=== PATIENT | female | born 1960 ===

== ENCOUNTER 2017-04-26 09:47 | Day surgery (SDC) | payer MEDICARE ==
[2017-04-25 10:54] VITALS: BMI 25.9
[2017-04-26] MEDS ORDERED: cefTRIAXone IV 1 gm in Dextros 50 ML IVPB ONE (11:49)
[2017-04-26] MEDS ORDERED: Lidocaine 2% Jelly (Uro-Jet) ONE (11:50)
[2017-04-26] MEDS ORDERED: Iohexol 240 (50 ml) ONE (11:50)
[2017-04-26] MEDS ORDERED: Propofol 10 mg/ml Inj (20 ML) ONE ×2 (11:54→12:07)
[2017-04-26] MEDS ORDERED: Midazolam 2 MG/2 ML VIAL ONE (11:54)
--- NOTE | 2017-04-26 12:24 | PCM.SURG1 ---
Surgeon's Initial Post Op Note - Surgeon's Notes Surgeon: Patrick GARDNER Vacuum Metalizing Supervisor: NONE Pre-Operative Diagnosis: HEMATURIA Operative Findings: CYSTITIS,. URETHRAL POLYPS Post-Operative Diagnosis: SAME Operation Performed: CYSTO,. BILAT RTG PYELOGRAM. URETHRAL BX AND FULG. EUA Specimen/Specimens Removed: URETHRAL BX. URINE Estimated Blood Loss: EBL {In ML}: 0 Blood Products Given: N/A Drains Used: No Drains Post-Op Condition: Good Date of Surgery/Procedure: 04/26/17 Time of Surgery/Procedure: 12:25
[2017-04-26] MEDS ORDERED: HYDROmorphone 0.5 mg/0.5 ml ISec IVP PRN (12:25)
[2017-04-26 13:53] VITALS: RESP 15
[2017-04-26 14:12] VITALS: BP 128/63; PULSE 65; TEMP 97.5; O2SAT 98
--- NOTE | 2017-04-27 08:03 | OP ---
PROCEDURE DATE: 04/26/2017 PREOPERATIVE DIAGNOSIS: Hematuria. POSTOPERATIVE DIAGNOSES: Hematuria. Cystitis. Urethritis. PROCEDURE: Cystoscopy. Bilateral retrograde pyelogram. Urethral biopsy and fulguration. Exam unde r anesthesia. OPERATING SURGEON: Dr. Martita Melton DESCRIPTION OF PROCEDURE: The patient was placed in a lithotomy position. Genitalia prepped and kei ped sterilely. Perioperative antibiotics were administered. Anesthesia was provided by the anesthesiologist. A 22-[place] cystoscope sheath was introduced with obturator. Urethra and bladder were inspected with 30-degree and 70-degree lenses. FINDINGS: The urethral caliber was normal. There was moderate inflammation of the urethra, especial ly at the bladder neck. There was no bladder tumor. There was mild bladder trabeculation. There was no bladder stone. The ureteral orifices were normal in position and shape. Occlusive tip retrograde ureteropyelogram was performed. Iodinated contrast dye was instilled via co ne-tipped catheter into each ureteral orifice. The ureters and kidneys were viewed sequentially with fluoroscopy. The retrograde pyelogram demonstrated no evidence of filling defect or obstruction within the ureters or collecting systems. There were some air bubbles noted on the right. They were inconsistently vi ewed and moved as expected of an air bubble. The bladder was reinspected with 70-degree lens and confirmed the above findings. The area of the abnormal mucosa in the urethra and bladder neck was biopsied using cold cup biopsy fo rceps. Two biopsies were obtained. Fulguration was performed with ball electrode electrocautery for hemostasis. Hemostasis was complete . As said earlier, the bladder was reinspected with 70-degree lens and confirmed the above findings. T here was no tumor. There was no stone. The bladder was then drained. Cystoscope and sheath were removed. Exam under anesthesia was performed. There was no abnormal pelvic mass, fixation or induration. The patient tolerated the procedure without complication. Martita Melton MD cc: [phone] TT: 04/27/2017 08:02:36 en
--- NOTE | 2017-04-27 08:25 | RAD ---
PROCEDURE: HISTORY: HEMATURIA COMPARISON: None TECHNIQUE: Total fluoroscopic time utilized during the procedure less than 1 hour FINDINGS: Submitted images from the current procedure 5 IMPRESSION: Less than 1 hour fluoroscopic time utilized during performance of the procedure. Images for theour review per the physician performing the procedure - noting real-time fluoroscopic findings
--- NOTE | 2017-04-27 08:58 | RAD ---
HISTORY: HEMATURIA COMPARISON: 07/06/2012 -lumbosacral spine x-ray FINDINGS: BOWEL: Right stool retention. No bowel obstruction BONES: Minimal mild lumbar spondylosis. L4-5 mild facet hypertrophic arthrosis. OTHER FINDINGS: Minimal bilateral sclerotic patchy sacroiliac joint arthrosis. Bilateral hip mild hypertrophic arthrosis. The left inferior rhys pelvic phleboliths are similar. A 2 x 4.5 mm calcification/ ossification projects over the right mid sacral wing below the SI joints ; its presence (or lack of) on the prior study is indeterminate techniques -the stool and bowel-gas here preclude this assessment Current stool and gas also pre occlude further evaluation for any more proximal urolithiasis. Clinical correlation regarding any outside studies suggesting urolithiasis IMPRESSION: 2 x 4.5 mm right hemipelvic calcification/ossification its presence or absence on the 2012 lumbar spine study is indeterminate. Other findings as above
== END 2017-04-26 14:36 | disposition home or self-care (01) ==
LOC: C.SDS 09:47
PROVIDERS: ATTEND Urology
DX: N30.80 Other cystitis without hematuria (principal); R31.21 Asymptomatic microscopic hematuria; N34.2 Other urethritis
CPT/HCPCS: 52224; 74000; 76000; 87086; 88104; 88305; 88342; J0696